=== PATIENT | female | born 1980 ===

== ENCOUNTER 2017-05-10 17:24 | Emergency (ER) | payer OTHER ==
[2017-05-10] MEDS ORDERED: Lidocaine 1% PF 5 ML VIAL ONE (17:52)
== END 2017-05-10 18:31 | disposition home or self-care (01) ==
LOC: SCSER 17:24
DX: S61.211A Laceration without foreign body of left index finger without damage to nail, initial encounter (principal); W26.0XXA Contact with knife, initial encounter
CPT/HCPCS: 12001; J2001

== ENCOUNTER 2017-05-19 10:28 | Emergency (ER) | payer OTHER ==
[2017-05-19] MEDS ORDERED: Adacel (T-DAP) 0.5 ML VIAL ONE (11:04)
== END 2017-05-19 11:25 | disposition home or self-care (01) ==
LOC: SCSER 10:28
DX: S61.211D Laceration without foreign body of left index finger without damage to nail, subsequent encounter (principal)
CPT/HCPCS: 12001; 90471; 90715